=== PATIENT | male | born 1985 | race Two or more races ===

== ENCOUNTER 2016-12-07 05:56 | Emergency (ER) | payer OTHER ==
[~2016-12-07] VITALS: Ht 177.8 cm; Wt 68.0 kg
[2016-12-07 06:15] VITALS: BP 110/71
[2016-12-07] MEDS ORDERED: MINERAL OIL 133 ML ENEMA. PR ONE (07:45)
--- NOTE | 2016-12-07 08:00 | RAD ---
ACUTE ABDOMEN SERIES History: constipation , right and left-sided abdominal pain Comparison: None. Findings: Frontal chest and supine and upright views of the abdomen. Cardiomediastinal silhouette is normal. There is no pleural effusion or pneumothorax. The lungs are clear. No pneumoperitoneum is identified. No air-fluid levels on the upright image. Scattered air and stool in the colon. No dilated loops of bowel are seen. No organomegaly. IMPRESSION: 1. No acute cardiopulmonary process. 2. Nonobstructive bowel gas pattern.
[2016-12-07] MEDS ORDERED: DOCU-109 PO (08:56)
--- NOTE | 2016-12-07 08:57 | PHYS DOC ---
Past History Past Medical History: Constipation, Other Past Surgical History: No Surgical History Alcohol Use: Occasionally Drug Use: None Adult General Chief Complaint Chief Complaint: CONSTIPATION HPI HPI 31-year-old male with no significant past medical history complaining of constipation over the last 2 days. Patient states he feels like he has to move his bowels but is having difficulty moving any significant stool. He is passing some small harder stools. Patient states she has trace amount of blood in the stool but that's now resolved. He has no bleeding problems or history of anemia or coagulopathy. Patient is not currently anticoagulated. Currently no abdominal pain just a mild vague feeling of being constipated. Review of Systems Review of Systems Constitutional: Denies fever or chills [] Eyes: Denies change in visual acuity, redness, or eye pain [] HENT: Denies nasal congestion or sore throat [] Respiratory: Denies cough or shortness of breath [] Cardiovascular: No additional information not addressed in HPI [] GI: Denies abdominal pain, nausea, vomiting, bloody stools or diarrhea [] : Denies dysuria or hematuria [] Musculoskeletal: Denies back pain or joint pain [] Integument: Denies rash or skin lesions [] Neurologic: Denies headache, focal weakness or sensory changes [] Endocrine: Denies polyuria or polydipsia [] Current Medications Current Medications Current Medications Medications (Trade) Dose Ordered Sig/José Miguel Start Time Stop Time Status Last Admin Dose Admin Mineral Oil (Fleet Mineral Oil) 133 ml 1X ONCE 12/07/16 07:45 12/07/16 07:47 DC 12/07/16 07:30 133 ML Allergies Allergies Allergies Coded Allergies Type Severity Reaction Last Updated Verified No Known Drug Allergies 12/07/16 No Physical Exam Physical Exam Well-appearing 31-year-old male no acute distress benign abdomen and normal bowel sounds nondistended. External anal exam normal. digital with no fecal impaction. Digital exam productive of Small amount of brown stool with no evidence of gross bleeding. Constitutional: Well developed, well nourished, no acute distress, non-toxic appearance. [] HENT: Normocephalic, atraumatic, bilateral external ears normal, oropharynx moist, no oral exudates, nose normal. [] Eyes: PERRLA, EOMI, conjunctiva normal, no discharge. [] Neck: Normal range of motion, no tenderness, supple, no stridor. [] Cardiovascular:Heart rate regular rhythm, no murmur [] Lungs & Thorax: Bilateral breath sounds clear to auscultation [] Abdomen: Bowel sounds normal, soft, no tenderness, no masses, no pulsatile masses. [] Skin: Warm, dry, no erythema, no rash. [] Back: No tenderness, no CVA tenderness. [] Extremities: No tenderness, no cyanosis, no clubbing, ROM intact, no edema. [] Neurologic: Alert and oriented X 3, normal motor function, normal sensory function, no focal deficits noted. [] Psychologic: Affect normal, judgement normal, mood normal. [] Current Patient Data Vital Signs Vital Signs Date Time Temp Pulse Resp B/P (MAP) Pulse Ox O2 Delivery O2 Flow Rate FiO2 12/07/16 06:15 98.4 67 16 99 Room Air EKG EKG [] Radiology/Procedures Radiology/Procedures [] Course & Med Decision Making Course & Med Decision Making Pertinent Labs and Imaging studies reviewed. (See chart for details) Signs and symptoms consistent with mild constipation and a well-appearing patient with unremarkable vital signs and a benign abdomen. No fecal impaction on digital exam no evidence of rectal bleeding. Vital signs are unremarkable. Minimal oil enema done some improvement. Patient is well-appearing and ambulating easily. Prescriptions given for Colace and his were to take MiraLAX and mineral oil [id number] as needed until symptoms are resolved and to maintain his regularity. Patient agrees with outpatient follow-up and will see his primary care doctor in the office. Strict return precautions given Dragon Disclaimer Dragon Disclaimer This chart was dictated in whole or in part using Voice Recognition software in a busy, high-work load, and often noisy Emergency Department environment. It may contain unintended and wholly unrecognized errors or omissions. Departure Departure: Impression: Primary Impression: Constipation Disposition: 01 HOME, SELF-CARE Condition: GOOD Referrals: PCPPAMELA (PCP) Patient Instructions: Constipation, Adult Additional Instructions: You have constipation. Her abdominal exam does not suggest any kind of her emergency today. A high-fiber diet and drink plenty of liquids. Multiple drinks will help keep her bowel habits regular and resolved constipation for instance present and juice and fruit juices. Use MiraLAX [id number] powder to mix with a large glass of water several times a day to help keep her stool soft and moving regularly. Mineral oil is also [id number]. Drink 30 mL of dilutions mineral oil twice a day to help continue to move her bowels. We've given her prescription for Colace to take as prescribed and this will also help keep irregular. Follow-up with your doctor in 1-2 days and return immediately for new severe or worsening symptoms. Scripts Docusate Sodium (COLACE) 100 Mg Capsule 100 MG PO BID for CONSTIPATION for 14 Days, #28 CAP Prov: HETAL BUSTOS MD 12/07/16 Docusate Sodium (COLACE) 100 Mg Capsule 1 CAP PO BID, #30 CAP Prov: HETAL BUSTOS MD 12/07/16 HETAL BUSTOS MD Dec 07, 2016 08:57
== END 2016-12-07 09:08 | disposition home or self-care (01) ==
LOC: ER 05:56
DX: K59.00 Constipation, unspecified (principal)
CPT/HCPCS: 74022; 99284

== ENCOUNTER → 2019-03-13 | Outpatient (CLI) | payer OTHER ==
[~2019-03-13] MED LIST: DOCU-109 PO
--- NOTE | 2019-03-13 13:34 | RAD ---
EXAM: Head CT without contrast. HISTORY: Headache and dizziness. TECHNIQUE: Computed tomographic images of the head were obtained without contrast. *One or more of the following individualized dose reduction techniques were utilized for this examination: 1. Automated exposure control. 2. Adjustment of the mA and/or kV according to patient size. 3. Use of iterative reconstruction technique. COMPARISON: None. FINDINGS: There is no acute or subacute extra-axial or intraparenchymal hemorrhage. There is no mass effect or midline shift. There is no hydrocephalus. The hernandez-white matter differentiation pattern is intact. The visualized portions of the orbits, paranasal sinuses and mastoid air cells are unremarkable. No suspicious calvarial lesion is seen. IMPRESSION: No acute intracranial findings. Findings were discussed with SHAVON Fajardo, at 1330 hours on 03/13/2019. Electronically signed by: Sherry Lindquist MD (03/13/2019 1:32 PM) [facility]
== END | disposition home or self-care (01) ==
LOC: CT 12:11
PROVIDERS: ATTEND Physician Assistant
DX: R51 Headache (principal); R11.0 Nausea; R42 Dizziness and giddiness; R50.81 Fever presenting with conditions classified elsewhere
CPT/HCPCS: 70450

== ENCOUNTER 2020-11-10 07:36 | Emergency (ER) | payer OTHER ==
[~2020-11-10] VITALS: Ht 180.3 cm; Wt 76.3 kg
--- NOTE | 2020-11-10 08:14 | PHYS DOC ---
Past History Past Medical History: Constipation, Other Past Surgical History: No Surgical History Alcohol Use: Occasionally Drug Use: None General Adult EDM: Chief Complaint: RIB PAIN HPI: HPI: 35-year-old male presents with left-sided rib pain. The patient has had pain on and off for about 5 days. Is been getting worse the last couple of days. The pain is sharp and stabbing, moderate to severe. It is made worse with breathing. He has not been able to sleep the last couple nights due to the discomfort. Patient denies any falls or trauma. He has no idea why it is hurting. He denies chest pain. He has had no other symptoms. Denies fever or chills. Review of Systems: Review of Systems: Constitutional: Denies fever or chills Eyes: Denies change in visual acuity HENT: Denies nasal congestion or sore throat Respiratory: Denies cough or shortness of breath Cardiovascular: Denies chest pain or edema GI: Denies abdominal pain, nausea, vomiting, bloody stools or diarrhea : Denies dysuria Musculoskeletal: Left lateral rib pain Integument: Denies rash Neurologic: Denies headache, focal weakness or sensory changes Endocrine: Denies polyuria or polydipsia Lymphatic: Denies swollen glands Psychiatric: Denies depression or anxiety Allergies: Allergies: Allergies Coded Allergies Type Severity Reaction Last Updated Verified No Known Drug Allergies 12/07/16 No Physical Exam: PE: Constitutional: Well developed, well nourished, no acute distress, non-toxic appearance. [] HENT: Normocephalic, atraumatic, bilateral external ears normal, oropharynx moist, no oral exudates, nose normal. [] Eyes: PERRLA, EOMI, conjunctiva normal, no discharge. [] Neck: Normal range of motion, no tenderness, supple, no stridor. [] Cardiovascular:Heart rate regular rhythm, no murmur [] Lungs & Thorax: Bilateral breath sounds clear to auscultation. Tenderness over the seventh and eighth rib area of the left. No ecchymosis or swelling. [] Abdomen: Bowel sounds normal, soft, no tenderness, no masses, no pulsatile masses. [] Skin: Warm, dry, no erythema, no rash. [] Back: No tenderness, no CVA tenderness. [] Extremities: No tenderness, no cyanosis, no clubbing, ROM intact, no edema. [] Neurologic: Alert and oriented X 3, normal motor function, normal sensory function, no focal deficits noted. [] Psychologic: Affect normal, judgement normal, mood normal. [] Current Patient Data: Vital Signs: Vital Signs Date Time Temp Pulse Resp B/P (MAP) Pulse Ox O2 Delivery O2 Flow Rate FiO2 11/10/20 07:42 98.3 75 18 115/74 (88) 99 Room Air EKG: EKG: [] Radiology/Procedures: Radiology/Procedures: [] Impressions: EXAM: Chest and left ribs, 4 views. HISTORY: Pain. Shortness of breath. COMPARISON: None. FINDINGS: A frontal view of the chest and 3 views of the left ribs are obtained. There is no infiltrate, pleural effusion or pneumothorax. The heart is normal in size. No displaced fracture is seen. IMPRESSION: No acute pulmonary or osseous finding. Electronically signed by: Sherry Paredes MD (11/10/2020 8:21 AM) [id number] DICTATED AND SIGNED BY: SHERRY PAREDES MD DATE: 11/10/20819 CC: QUETA HANNA DO; NAME,KRISTINA Gray SHAVON ~MTH0 0 Heart Score: C/O Chest Pain: N/A Risk Factors: Risk Factors: DM, Current or recent (<one month) smoker, HTN, HLP, family history of CAD, obesity. Risk Scores: Score 0 - 3: 2.5% MACE over next 6 weeks - Discharge Home Score 4 - 6: 20.3% MACE over next 6 weeks - Admit for Clinical Observation Score 7 - 10: 72.7% MACE over next 6 weeks - Early Invasive Strategies Course & Med Decision Making: Course & Med Decision Making Pertinent Labs and Imaging studies reviewed. (See chart for details) The patient's chest x-ray and rib films are negative for acute findings. This appears to be somesort of musculoskeletal pain. Perhaps a strained intercostal muscle. It does not appear to be life-threatening at this time. I have encouraged him to follow-up with his primary care physician and possibly a chiropractor. He is stable for discharge at this time. [] Dragon Disclaimer: Dragon Disclaimer: This electronic medical record was generated, in whole or in part, using a voice recognition dictation system. Departure Departure: Impression: Primary Impression: Rib pain on left side Disposition: HOME / SELF CARE / HOMELESS Condition: STABLE Referrals: NAME,KRISTINA SANDS (PCP) Patient Instructions: Rib Contusion Scripts Hydrocodone/Acetaminophen (Hydrocodone-Acetamin 5-325 mg) 1 Each Tablet 1 EACH PO Q4-6HRS PRN for PAIN, #10 TAB Prov: QUETA HANNA DO 11/10/20 QUETA HANNA DO November 10, 2020 08:14
--- NOTE | 2020-11-10 08:23 | RAD ---
EXAM: Chest and left ribs, 4 views. HISTORY: Pain. Shortness of breath. COMPARISON: None. FINDINGS: A frontal view of the chest and 3 views of the left ribs are obtained. There is no infiltra te, pleural effusion or pneumothorax. The heart is normal in size. No displaced fracture is seen. IMPRESSION: No acute pulmonary or osseous finding. Electronically signed by: Sherry Lindquist MD (11/10/2020 8:21 AM) [id number]
[2020-11-10] MEDS ORDERED: HYDR-2759 PO (08:37)
== END 2020-11-10 08:44 | disposition home or self-care (01) ==
LOC: ER 07:36
DX: R07.81 Pleurodynia (principal)
CPT/HCPCS: 71101; 99283-25